=== PATIENT | male | born 1945 | race Caucasian/White ===

== ENCOUNTER 2017-12-31 13:19 | Outpatient (CLI) | payer MEDICARE, OTHER ==
--- NOTE | 2017-12-31 14:39 | CT ---
CT BRAIN WITHOUT CONTRAST: HISTORY: A 72-year-old male with leg weakness, unable to speak, which has resolved. FINDINGS: Comparison is made with the exam of 06/29/17. 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 No evidence of acute infarct, hemorrhage , midline shift, or abnormal extraaxial fluid collections are seen. The ventricular size is appropri ate and the basilar cisterns are patent. The bony calvarium is intact. The visualized paranasal sin uses and mastoid air cells are well aerated. IMPRESSION: No CT evidence of acute intracranial process. POS: [facility]
== END 2017-12-31 13:20 | disposition home or self-care (01) ==
LOC: CT 13:19
PROVIDERS: ATTEND Internal Medicine Cardiovascular Disease
DX: R53.1 Weakness (principal)
CPT/HCPCS: 70450